=== PATIENT | female | born 1985 | race Caucasian/White ===

== ENCOUNTER → 2025-01-07 | Outpatient (CLI) | payer OTHER ==
[2025-01-19 12:19] LABS: HPV HIGH RISK BY TMA Not Detected; HPV SOURCE Cervical
== END | disposition home or self-care (01) ==
LOC: LAB 10:36 → LAB SHORT 10:36
PROVIDERS: Family Medicine
DX: Z01.419 Encounter for gynecological examination (general) (routine) without abnormal findings (principal)
CPT/HCPCS: 87624; G0123